=== PATIENT | female | born 2000 | race African-American/Black ===

== ENCOUNTER 2022-07-20 13:02 | Emergency (ER) | payer OTHER | END 2022-07-20 13:42 | disposition home or self-care (01) | LOC: ERS 13:02 | DX: S61.512D Laceration without foreign body of left wrist, subsequent encounter (principal); W45.8XXD Other foreign body or object entering through skin, subsequent encounter ==

== ENCOUNTER 2022-08-29 19:54 | Emergency (ER) | payer OTHER ==
[2022-08-29 20:59] LABS: Bilirubin Negative (Negative); Blood, Urine Negative (Negative); Clarity Clear (Clear); Glucose, Urine (Dipstick) Normal (Negative); Ketone, Urine Negative (Negative); Leukocyte Negative Leu/uL (Negative); Nitrite Negative (Negative); Protein, Urine (Dipstick) 10 mg/dL (Neg-Trace); Specific Gravity, Urine 1.029 (1.002-1.036); Urobilinogen Normal mg/dL (Less than 2); pH, Urine 6.5 (5.0-9.0)
== END 2022-08-29 21:30 | disposition home or self-care (01) ==
LOC: ERS 19:54
DX: O99.612 Diseases of the digestive system complicating pregnancy, second trimester (principal); Z3A.14 14 weeks gestation of pregnancy
CPT/HCPCS: 81003; 99284

== ENCOUNTER 2022-09-06 17:47 | Emergency (ER) | payer OTHER ==
[2022-09-06 19:14] LABS: Bacteria/HPF None Seen HPF (None Seen); Bilirubin Negative (Negative); Blood, Urine Negative (Negative); Clarity Turbid (Clear); Glucose, Urine (Dipstick) Normal (Negative); Ketone, Urine Negative (Negative); Leukocyte Negative Leu/uL (Negative); Nitrite Negative (Negative); Protein, Urine (Dipstick) 30 mg/dL (Neg-Trace); RBC/HPF 0-3 HPF (0-3); Specific Gravity, Urine 1.033 (1.002-1.036); WBC/HPF 0-3 HPF (0-3); pH, Urine 6.5 (5.0-9.0)
[2022-09-06 19:16] LABS: Pregnancy Test - Urine (BHCG) POSITIVE (Negative); Pregu Control Background? CLEAR/WHITE (CLR/WHITE); Pregu Control Bar Appear? YES (CONTROL BAR); Specific Gravity 1.033 (1.002-1.036)
== END 2022-09-06 19:22 | disposition home or self-care (01) ==
LOC: ERS 17:47
DX: Z34.92 Encounter for supervision of normal pregnancy, unspecified, second trimester (principal); Z3A.15 15 weeks gestation of pregnancy
CPT/HCPCS: 81003; 81015; 81025; 99282